=== PATIENT | male | born 2000 ===

== ENCOUNTER 2019-10-29 06:00 | Outpatient (RCR) | payer MEDICAID, SELFPAY | END 2019-11-23 23:59 | disposition home or self-care (01) | LOC: SST 06:00 | PROVIDERS: PCP Physical Medicine & Rehabilitation; Referring Provider Physical Medicine & Rehabilitation; Visit Provider Physical Medicine & Rehabilitation | DX: I62.9 Nontraumatic intracranial hemorrhage, unspecified (principal); Q27.30 Arteriovenous malformation, site unspecified; H16.213 Exposure keratoconjunctivitis, bilateral | CPT/HCPCS: 92607; 92608 ==